=== PATIENT | male | born 1975 ===

== ENCOUNTER 2018-04-25 19:43 | Observation (INO) | payer OTHER ==
[2018-04-25 20:05] VITALS: BMI 29.2
[2018-04-25] MEDS ORDERED: Sodium Chloride 0.9% 1,000 ML IV STA (20:10)
--- NOTE | 2018-04-25 20:14 | ED PDOC ---
Arrival/HPI - General Time Seen by Provider: 04/25/18 19:58 Historian: Patient - History of Present Illness Narrative History of Present Illness (Text): you were treated in the ED today for hx of bowel obstruction which resolved without surgery and having right lower abdomen discomfort with having loose non- bloody stool and otherwise without any nausea/vomiting/headache/dizziness/ difficulty breathing/chest pain/numbness/tingling/loss of limb function/pain with urination. Time/Duration: Other (2 days) Symptom Onset: Gradual Symptom Course: Unchanged Quality: Aching Severity Level: 2 Activities at Onset: Rest Context: Sitting Past Medical History - Provider Review Nursing Documentation Reviewed: Yes - Travel History Have you recently traveled outside [place] w/in the past 3 mons?: No Family/Social History - Physician Review Nursing Documentation Reviewed: Yes Family/Social History: No Known Family HX Allergies/Home Meds Allergies/Adverse Reactions: Allergies No Known Allergies Allergy (Verified 04/25/18 20:05) Home Medications: Home Meds Medication Instructions Recorded Confirmed No Known Home Med 04/25/18 04/25/18 Review of Systems - Review of Systems Constitutional: Normal Eyes: Normal ENT: Normal Respiratory: Normal Cardiovascular: Normal Gastrointestinal: Abdominal Pain, Stool Changes Genitourinary Male: Normal Musculoskeletal: Normal Skin: Normal Neurological: Normal Endocrine: Normal Hemo/Lymphatic: Normal Psychiatric: Normal Physical Exam Vital Signs Reviewed: Yes Vital Signs Temp Pulse Resp BP Pulse Ox 04/25/18 19:43 98.8 F 86 18 135/83 100 Temperature: Afebrile Blood Pressure: Hypertensive Pulse: Regular Respiratory Rate: Normal Appearance: Positive for: Well-Appearing, Non-Toxic, Comfortable Pain Distress: None Mental Status: Positive for: Alert and Oriented X 3 - Systems Exam Head: Present: Atraumatic, Normocephalic Pupils: Present: PERRL Extroacular Muscles: Present: EOMI Conjunctiva: Present: Normal Ears: Present: Normal Mouth: Present: Moist Mucous Membranes Pharnyx: Present: Normal Nose (External): Present: Atraumatic Nose (Internal): Present: Normal Inspection Neck: Present: Normal Range of Motion Respiratory/Chest: Present: Clear to Auscultation, Good Air Exchange Cardiovascular: Present: Regular Rate and Rhythm Abdomen: No: Tenderness, Distention, Normal Bowel Sounds, Peritoneal Signs, Rebound, Guarding, McBurney's Point Tender, Rovsing's Sign Present, Hernias, Feeding Tubes, Ostomy Tubes, Mass/Organomegaly, Scars, Other Back: Present: Normal Inspection Upper Extremity: Present: Normal Inspection Lower Extremity: Present: Normal Inspection Neurological: Present: GCS=15, CN II-XII Intact, Speech Normal, Motor Func Grossly Intact Skin: Present: Warm, Normal Color Psychiatric: Present: Alert, Oriented x 3, Normal Insight, Normal Concentration Medical Decision Making ED Course and Treatment: you were treated in the ED today for hx of bowel obstruction which resolved without surgery and having right lower abdomen discomfort with having loose non- bloody stool and otherwise without any nausea/vomiting/headache/dizziness/ difficulty breathing/chest pain/numbness/tingling/loss of limb function/pain with urination. You were otherwise breathing easily, smiling and talking easily , good strength/sensation, walking, clear lungs, no abdomen tenderness, skin pink, no fever temp 98.8, stable heart rate 86, stable breathing rate 18, excellent oxygen level 100% room air, elevated blood pressure 135/83 which we recommend repeat in 2-3 days primary care office to determine further treatment , you have blood tests no infection count 10, stable blood level hemoglobin 16/ platelets 347, stable chemistry, lipase normal 53, urine test pending, ct abdomen/pelvis radiology pending, saline, observation done in the ED with improvement, counselled to monitor symptoms. signed out to Dr. Denson to fu ct a/p and disposition. 04/25/18 22:12 Reassessment Condition: Re-examined, Improved - Lab Interpretations Lab Results: 04/25/18 20:30 04/25/18 20:30 Lab Results 04/25/18 21:58: Urine Color Yellow, Urine Appearance Clear, Urine pH 6.0, Ur Specific [place] >= 1.030, Urine Protein Negative, Urine Glucose (UA) Negative, Urine Ketones Trace H, Urine Blood Trace-intact H, Urine Nitrate Negative, Urine Bilirubin Negative, Urine Urobilinogen 0.2, Ur Leukocyte Esterase Negative , Urine RBC 1 - 3, Urine WBC 2 - 5, Ur Epithelial Cells 1 - 3, Urine Bacteria Few 04/25/18 20:30: Sodium 139, Potassium 3.9, Chloride 101, Carbon Dioxide 27, Anion Gap 15, BUN 17, Creatinine 0.8, Est GFR ( Amer) > 60, Est GFR (Non- Af Amer) > 60, Random Glucose 102, Calcium 10.0, Magnesium 2.0, Total Bilirubin 0.8, AST 49, ALT 45, Alkaline Phosphatase 56, Total Protein 7.6, Albumin 4.3, Globulin 3.2, Albumin/Globulin Ratio 1.3, Lipase 53 04/25/18 20:30: PT 11.2, INR 0.99, APTT 24.5 L 04/25/18 20:30: WBC 10.3, RBC 5.14, Hgb 16.1, Hct 45.0, MCV 87.5, MCH 31.3, MCHC 35.8, RDW 13.0, Plt Count 347, MPV 8.4, Gran % 63.2, Lymph % (Auto) 22.1, [place] % (Auto) 12.0 H, Eos % (Auto) 2.1, Baso % (Auto) 0.6, Gran # 6.54 H, Lymph # (Auto) 2.3, [place] # (Auto) 1.2 H, Eos # (Auto) 0.2, Baso # (Auto) 0.06 I have reviewed the lab results: Yes - RAD Interpretation Radiology Orders: 04/25/18 21:18 ABDOMEN & PELVIS [ABD & PELVIS IV CONTRAST ONLY] [CT] Stat - Medication Orders Current Medication Orders: Discontinued Medications Sodium Chloride (Sodium Chloride 0.9%) 1,000 mls @ 1,000 mls/hr IV .Q1H STA Stop: 04/25/18 21:09 Last Admin: 04/25/18 20:32 Dose: 1,000 mls/hr eMAR Start Stop Document 04/25/18 20:32 LA (Rec: 04/25/18 20:33 LA [facility] [email or web address]) Intravenous Solution Start Date 04/25/18 Start Time 20:33 End Date 04/25/18 End time 21:33 Total Infusion Time 60 Disposition/Present on Arrival - Present on Arrival Any Indicators Present on Arrival: No - Disposition Have Diagnosis and Disposition been Completed?: Yes Diagnosis: Pain in the abdomen Disposition Time: :27 Patient Plan: Transfer To (transfer to Dr. Denson to ct a/p and disposition) Patient Problems: Current Active Problems Problem Status Onset Pain in the abdomen Acute Condition: STABLE Referrals: PCP,NO [Primary Care Provider] - Follow up with primary
[2018-04-25 20:49] LABS: BASO # 0.06 K/mm3 (0.0-2.0); BASO % 0.6 % (0.0-3.0); EOS # 0.2 (0.0-0.7); EOS % 2.1 % (1.5-5.0); GRAN # 6.54 (1.4-6.5); GRAN % 63.2 % (50.0-68.0); HEMOGLOBIN 16.1 g/dL (14.0-18.0); LYMPH # 2.3 (1.2-3.4); LYMPH % 22.1 % (22.0-35.0); MEAN CELL VOLUME 87.5 fl (80.0-105.0); MEAN CORPUSCULAR HEMOGLOBIN 31.3 pg (25.0-35.0); MEAN CORPUSCULAR HGB CONC 35.8 g/dl (31.0-37.0); MEAN PLATELET VOLUME 8.4 fl (7.0-11.0); MONO # 1.2 (0.1-0.6); RBC 5.14 10^6/uL (3.5-6.1); WHITE BLOOD COUNT 10.3 10^3/ul (4.5-11.0)
[2018-04-25 21:00] LABS: INR 0.99 (0.93-1.08); PARTIAL THROMBOPLASTIN TIME 24.5 Seconds (25.1-36.5); PROTHROMBIN TIME 11.2 SECONDS (9.4-12.5)
[2018-04-25 21:14] LABS: ALB/GLOB RATIO 1.3 (1.1-1.8); ALBUMIN 4.3 g/dL (3.0-4.8); ALT/SGPT 45 U/L (7-56); AST/SGOT 49 U/L (17-59); BLOOD UREA NITROGEN 17 mg/dL (7-21); GFR AFRICAN-AMERICAN > 60; GFR NON-AFRICAN AMERICAN > 60; LIPASE 53 U/L (23-300)
[2018-04-25] MEDS ORDERED: Iohexol 350 MG/100 ML VIAL ONE (21:53)
[2018-04-25 22:10] LABS: URINE BILIRUBIN NEGATIVE (NEGATIVE); URINE BLOOD TRACE-INTACT (NEGATIVE); URINE GLUCOSE (UA) NEGATIVE (NEGATIVE); URINE LEUKOCYTE ESTERASE NEGATIVE Leu/uL (NEGATIVE); URINE PROTEIN NEGATIVE mg/dL (<30 mg/dL); URINE UROBILINOGEN 0.2 E.U./dL (<1 E.U./dL)
[2018-04-25 22:15] LABS: URINE APPEARANCE CLEAR (CLEAR); URINE COLOR YELLOW (YELLOW)
[2018-04-25 22:20] LABS: URINE BACTERIA FEW (NEG)
--- NOTE | 2018-04-25 22:37 | ED PDOC ---
Physical Exam Vital Signs Temp Pulse Resp BP Pulse Ox 04/25/18 23:22 60 18 132/91 H 97 04/25/18 22:34 98.2 F 61 18 133/82 99 04/25/18 19:43 98.8 F 86 18 135/83 100 Medical Decision Making ED Course and Treatment: 04/25/18 22:30 Case endorsed to me by Dr. Shaikh, pending CT Abdomen and Pelvis, reassessment, and disposition.Pt. with a past hx. bowel obstruction spontaneously resolved,with c/o abdominal pain,nausea,diarrhea past 3 days. 04/25/18 23:45 CT Abdomen and Pelvis shows: Artifacts: Motion artifact degrades image quality. Lower thorax: Heart size is normal. There is minimal scarring at the lung bases ABDOMEN: Liver: There is fatty infiltration of the liver. Gallbladder and bile ducts: unremarkable Pancreas: unremarkable Spleen: Spleen is unremarkable. There is an accessory spleen in the left upper quadrant. Adrenals: unremarkable Kidneys and ureters: unremarkable Stomach and bowel: Stomach is incompletely distended which accentuates the gastric wall.Bowel rotation is normal. There is mild duodenal and proximal jejunal wall and fold thickening. Small bowel is mildly distended with fluid and air. There is no obstruction. Ileocecal region is unremarkable. Appendix and terminal ileum are unremarkable. Colon is incompletely distended which limits evaluation. There is scattered diverticulosis PELVIS: Appendix: See stomach and bowel Bladder: Bladder is almost completely empty. Reproductive: Seminal vesicles and prostate are unremarkable. ABDOMEN and PELVIS: Intraperitoneal space: There is no free air or free fluid. Bones/joints: There are no acute osseous abnormalities. There is minimal spondylosis. There is partial ankylosis of the sacroiliac joints. Soft tissues: unremarkable Vasculature: Vascular structures are unremarkable. Lymph nodes: There is no pathologic adenopathy. IMPRESSION: Fatty liver, no acute solid visceral abnormality; mild ileus or possible enteritis, no obstruction; no CT findings of appendicitis or diverticulitis; partial ankylosis of sacroiliac joints. 04/26/18 01:[address] Jurado, who is aware and agrees with plan. Accepts pt in to his service. Pt will go [facility] observation for abdominal pain, enteritis, and ileus. Requests Dr. Joe on consult. - Lab Interpretations Lab Results: 04/25/18 20:30 04/25/18 20:30 Lab Results 04/25/18 21:58: Urine Color Yellow, Urine Appearance Clear, Urine pH 6.0, Ur Specific [place] >= 1.030, Urine Protein Negative, Urine Glucose (UA) Negative, Urine Ketones Trace H, Urine Blood Trace-intact H, Urine Nitrate Negative, Urine Bilirubin Negative, Urine Urobilinogen 0.2, Ur Leukocyte Esterase Negative , Urine RBC 1 - 3, Urine WBC 2 - 5, Ur Epithelial Cells 1 - 3, Urine Bacteria Few 04/25/18 20:30: Sodium 139, Potassium 3.9, Chloride 101, Carbon Dioxide 27, Anion Gap 15, BUN 17, Creatinine 0.8, Est GFR ( Amer) > 60, Est GFR (Non- Af Amer) > 60, Random Glucose 102, Calcium 10.0, Magnesium 2.0, Total Bilirubin 0.8, AST 49, ALT 45, Alkaline Phosphatase 56, Total Protein 7.6, Albumin 4.3, Globulin 3.2, Albumin/Globulin Ratio 1.3, Lipase 53 04/25/18 20:30: PT 11.2, INR 0.99, APTT 24.5 L 04/25/18 20:30: WBC 10.3, RBC 5.14, Hgb 16.1, Hct 45.0, MCV 87.5, MCH 31.3, MCHC 35.8, RDW 13.0, Plt Count 347, MPV 8.4, Gran % 63.2, Lymph % (Auto) 22.1, [place] % (Auto) 12.0 H, Eos % (Auto) 2.1, Baso % (Auto) 0.6, Gran # 6.54 H, Lymph # (Auto) 2.3, [place] # (Auto) 1.2 H, Eos # (Auto) 0.2, Baso # (Auto) 0.06 - RAD Interpretation Radiology Orders: 04/25/18 21:18 ABDOMEN & PELVIS [ABD & PELVIS IV CONTRAST ONLY] [CT] Stat - Medication Orders Current Medication Orders: Discontinued Medications Famotidine (Pepcid) 20 mg IVP STAT STA Stop: 04/26/18 01:30 Last Admin: 04/26/18 01:45 Dose: 20 mg IVP Administration Document 04/26/18 01:45 AD (Rec: 04/26/18 01:45 AD [facility] [email or web address] Charges for Administration # of IVP Administrations 1 Sodium Chloride (Sodium Chloride 0.9%) 1,000 mls @ 1,000 mls/hr IV .Q1H STA Stop: 04/25/18 21:09 Last Admin: 04/25/18 20:32 Dose: 1,000 mls/hr eMAR Start Stop Document 04/25/18 20:32 LA (Rec: 04/25/18 20:33 LA [facility] [email or web address]) Intravenous Solution Start Date 04/25/18 Start Time 20:33 End Date 04/25/18 End time 21:33 Total Infusion Time 60 Ketorolac Tromethamine (Toradol) 30 mg IVP ONCE ONE Stop: 04/26/18 01:30 Last Admin: 04/26/18 01:45 Dose: 30 mg MAR Pain Assessment Document 04/26/18 01:45 AD (Rec: 04/26/18 01:46 AD [facility] [email or web address] Pain Reassessment Is this a pain reassessment? No Sleep Is patient sleeping during reassessment? No Pain Scale Used Pain Scale Used Numeric Description Intensity of Pain at present 8 IVP Administration Document 04/26/18 01:45 AD (Rec: 04/26/18 01:46 [place] [email or web address] Charges for Administration # of IVP Administrations 1 Disposition/Present on Arrival - Present on Arrival Any Indicators Present on Arrival: No History of DVT/PE: No History of Uncontrolled Diabetes: No Urinary Catheter: No History of Decub. Ulcer: No History Surgical Site Infection Following: None - Disposition Have Diagnosis and Disposition been Completed?: Yes Diagnosis: Abdominal pain, Enteritis, Ileus Disposition: HOSPITALIZED Disposition Time: 02:09 Patient Problems: Current Active Problems Problem Status Onset Pain in the abdomen Acute Condition: STABLE Referrals: PCP,NO [Primary Care Provider] - Follow up with primary
--- NOTE | 2018-04-25 23:42 | CT ---
EXAM: CT Abdomen and Pelvis With Intravenous Contrast EXAM DATE/TIME: 04/25/2018 9:18 PM CLINICAL HISTORY: 42 years old, male; Pain; Abdominal pain; Localized; Right lower quadrant (rlq); Additional info: 42yom with right lower abdomen pain. Please eval. TECHNIQUE: Axial computed tomography images of the abdomen and pelvis with intravenous contrast. All CT scans at this facility use at least one of these dose optimization techniques: automated exposure control; mA and/or kV adjustment per patient size (includes targeted exams where dose is matched to clinical indication); or iterative reconstruction. Coronal and sagittal reformatted images were created and reviewed. COMPARISON: There are no prior studies for comparison. FINDINGS: Artifacts: Motion artifact degrades image quality. Lower thorax: Heart size is normal. There is minimal scarring at the lung bases ABDOMEN: Liver: There is fatty infiltration of the liver. Gallbladder and bile ducts: unremarkable Pancreas: unremarkable Spleen: Spleen is unremarkable. There is an accessory spleen in the left upper quadrant. Adrenals: unremarkable Kidneys and ureters: unremarkable Stomach and bowel: Stomach is incompletely distended which accentuates the gastric wall.Bowel rotation is normal. There is mild duodenal and proximal jejunal wall and fold thickening. Small bowel is mildly distended with fluid and air. There is no obstruction. Ileocecal region is unremarkable. Appendix and terminal ileum are unremarkable. Colon is incompletely distended which limits evaluation. There is scattered diverticulosis PELVIS: Appendix: See stomach and bowel Bladder: Bladder is almost completely empty. Reproductive: Seminal vesicles and prostate are unremarkable. ABDOMEN and PELVIS: Intraperitoneal space: There is no free air or free fluid. Bones/joints: There are no acute osseous abnormalities. There is minimal spondylosis. There is partial ankylosis of the sacroiliac joints. Soft tissues: unremarkable Vasculature: Vascular structures are unremarkable. Lymph nodes: There is no pathologic adenopathy. IMPRESSION: Fatty liver, no acute solid visceral abnormality; mild ileus or possible enteritis, no obstruction; no CT findings of appendicitis or diverticulitis; partial ankylosis of sacroiliac joints Additional nonemergent findings as described above.
[2018-04-26] MEDS ORDERED: Sodium Chloride 0.9% 1,000 ML IV STA (02:07)
[2018-04-26 09:15] VITALS: BP 112/69; PULSE 55; RESP 20; TEMP 97.3; O2SAT 96
--- NOTE | 2018-04-26 16:39 | HP ---
HISTORY OF PRESENT ILLNESS: I saw [place] resting in bed this morning. He is a 42-year-old male who came in with a history of having severe abdominal pain, right lower abdominal discomfort, loose nonbloody diarrhea, and occasional nauseousness, none now. Just not feeling well. He has had a small bowel obstruction a year ago which got him worried, that is why he came to the Emergency Room. PAST MEDICAL HISTORY: He has a past medical history of small bowel obstruction in the past, otherwise that is it. FAMILY HISTORY: No known. ALLERGIES: NO KNOWN DRUG ALLERGIES. MEDICATIONS: None. SOCIAL HISTORY: Occasional alcohol. REVIEW OF SYSTEMS: He has no acute vision or hearing changes. No sore throat. No neck pain. No chest pain, palpitations. No shortness of breath or cough. He gas abdominal pain. He has got diarrhea. Very uncomfortable, better now. Skin, for what I could tell, is fine. No dizziness. No anxiety or depression. PHYSICAL EXAMINATION: GENERAL: Well appearing, nontoxic, comfortable at this time. Alert and oriented x3. No acute complaints at this time. VITAL SIGNS: He has 98.8 temperature, 86 pulse, 18 respiratory rate, 135/83 blood pressure, 100% O2 sat. HEENT: His head is atraumatic, normocephalic. Extraocular muscles are intact. Pupils are equal and reactive to light. Throat is moist. NECK: Supple. Thyroid midline. HEART: Regular rate. LUNGS: Decreased breath sounds, clear to auscultation. No wheezes or rhonchi. No rales. ABDOMEN: Soft, nontender. Positive bowel sounds. No guarding, rebound, or CVA tenderness. EXTREMITIES: Have no edema. NEUROLOGY: GCS is 15. Cranial nerves II to XII grossly intact. Normal speech. Alert and oriented x3. SKIN: Warm and dry. No apparent ulcers or rashes. He came in with his abdominal pain and diarrhea. It is better overnight. He is on IV fluids. He had Pepcid. He has no pain. LABORATORY DATA: His urine is clear. He has a 139 sodium, potassium 3.9, BUN 17, creatinine 0.8, GFR is greater than 60, sugar is 102, calcium is 10. Total bilirubin is 0.8, magnesium is 2, AST is 49, ALT is 45, alkaline phosphatase 56, total protein 7.6, albumin is 4.3, lipase is 53. INR is 0.99. He has a 10.3 white count, 15.1 hemoglobin, 45 hematocrit with 347 platelets. He did have a CAT scan of the abdomen and pelvis, which showed fatty liver, no acute visual abnormality, mild ileus or possible enteritis, no obstruction. So, I discussed with the sheet metal worker apprentice, we will increase his diet to clears for breakfast and regular for lunch. If he does well, we will discharge him later today. Pastor Jurado DO
== END 2018-04-26 14:11 | disposition home or self-care (01) ==
LOC: ED 19:43 → ERH 04-26 02:05 → 3RSO 04-26 02:32
PROVIDERS: ADMIT Family Medicine; ATTEND Family Medicine
DX: K56.7 Ileus, unspecified (principal); K76.0 Fatty (change of) liver, not elsewhere classified
CPT/HCPCS: 74177; 80053; 81001; 83690; 83735; 85025; 85610; 85730; 87086; 96361; 96374; 96375; 99285; G0378; J1885; J7030; Q9967